=== PATIENT | female | born 1940 | race Caucasian/White ===

== ENCOUNTER 2023-10-16 05:45 | Day surgery (SDC) | payer MEDICARE, BC ==
[2023-10-16] VITALS (8 sets, daily range): BP systolic 122–134; BP diastolic 58–71; PULSE 51–67; RESP 12–18; TEMP 96.4; O2SAT 94–100
[~2023-10-16] VITALS: Ht 152.4 cm; Wt 83.1 kg
[~2023-10-16 05:45] MED LIST: ALEN70TA80 PO; AMLO5TAB16 PO; APIX5TAB3 PO; CABE0.5T2 PO; CALC200T PO; CHOL100062 PO; DOCUMENT DATE & TIME OF BETA-BLOCKER PO ONE; LEVO50TA8 PO; METO25TA6 PO; MULT-620 PO; POTA-205 PO; PRAV40TA3 PO; ceFOXitin 2GM-NS 100mL ADDvant 100 ML IV ONE; famotidine 20mg tablet PO ONE; ringers solution, lacted 1,000 ML IV SCH
[2023-10-16] MEDS ORDERED: BUPIVAcaine/PF 2.5mg/ml (0.25%) 10ml vial ONE (06:56)
[2023-10-16] MEDS ORDERED: HYDROmorphone/PF 0.2 MG/ML SYRINGE IV PRN (07:20)
[2023-10-16] MEDS ORDERED: meperidine/PF 25mg/ml syringe IV PRN (07:20)
[2023-10-16] MEDS ORDERED: proCHLORperazine 10 MG/2 ml inj IV PRN (07:20)
[2023-10-16] MEDS ORDERED: ringers solution, lacted 1,000 ML IV SCH (07:20)
[2023-10-16] MEDS ORDERED: ondansetron/PF 4mg/2ml inj IV PRN (07:20)
[2023-10-16] MEDS ORDERED: labetalol 20mg/4ml (5mg/ml) syringe IV PRN (07:20)
[2023-10-16] MEDS ORDERED: acetaminophen 1,000mg/100ml IV 100 ML IV PRN (07:20)
[2023-10-16] MEDS ORDERED: morphine 2 MG/ML inj. syringe IV PRN (07:20)
[2023-10-16] MEDS ORDERED: hydrALAZINE 20mg/ml inj. IV PRN (07:20)
[2023-10-16 07:25] LABS: APTT 31 SECONDS (22-32); INR 1.1 INR; PROTHROMBIN TIME 11.9 SECONDS (9.0-12.0)
[2023-10-16] MEDS ORDERED: glycopyrrolate 0.2mg/ml inj ONE (08:16)
[2023-10-16] MEDS ORDERED: neostigmine methylsulfate 1 MG/ML 10ml vial ONE (08:16)
[2023-10-16] MEDS ORDERED: sevoflurane 250ml liquid IH ONE (08:16)
[2023-10-16] MEDS ORDERED: clindamycin 600mg/D5W 50ml 50 ML IV ONE (08:20)
[2023-10-16] MEDS ORDERED: fentaNYL/PF 50MCG/1 ML 2ML syringe ONE (08:20)
[2023-10-16] MEDS ORDERED: CLINDAMYCIN 600mg IN NS 50ML 50 ML IV ONE (08:20)
[2023-10-16] MEDS ORDERED: midazolam 1 mg/ML 2ml injection ONE (08:28)
[2023-10-16] MEDS ORDERED: dexamethasone sod phosphate 4mg/ml inj. ONE (08:33)
[2023-10-16] MEDS ORDERED: propofol inj 20 ML IV ONE (08:34)
[2023-10-16] MEDS ORDERED: rocuronium 10mg/ml inj IV ONE (08:34)
[2023-10-16] MEDS ORDERED: LIDOcaine 2% (20mg/ml) 5ml vial ONE (08:34)
[2023-10-16] MEDS ORDERED: ondansetron/PF 4mg/2ml inj ONE (08:34)
[2023-10-16] MEDS ORDERED: BUPIVAcaine/PF 2.5mg/ml (0.25%) 10ml vial IJ ONE (09:05)
--- NOTE | 2023-10-16 09:40 | NUR ---
Received from OR via , accompanied by Anesthesiologist Joseph and report given by Anesthesiolreilly and ZIGGY Abraham. Pt is sleepy but responds to voice. SM 10L o2 saturation 96%. No s/sx of pain or distress. Dressing on left groin, clean, dry, and intact. VSS. Will continue to monitor patient.
--- NOTE | 2023-10-16 11:10 | NUR ---
Pt understand all discharge instructions and given verbal handout. Pt verbalizes understanding. Left groin dressing, CDI. Pt continues to have a dry cough but c/o of this prior to admission. Pt transported via wheelchair to private vehicle without incident. All belongings with patient: purse, wallet, watch, keys, dentures and glasses.
== END 2023-10-16 11:10 | disposition home or self-care (01) ==
LOC: PAS 05:45
PROVIDERS: ATTEND Surgery
DX: R59.0 Localized enlarged lymph nodes (principal); I48.91 Unspecified atrial fibrillation; E11.9 Type 2 diabetes mellitus without complications; I10 Essential (primary) hypertension; Z88.1 Allergy status to other antibiotic agents; Z88.8 Allergy status to other drugs, medicaments and biological substances; Z88.2 Allergy status to sulfonamides; Z91.013 Allergy to seafood; Z91.041 Radiographic dye allergy status; Z79.899 Other long term (current) drug therapy; Z90.49 Acquired absence of other specified parts of digestive tract; Z98.890 Other specified postprocedural states; Z79.01 Long term (current) use of anticoagulants; Z85.72 Personal history of non-Hodgkin lymphomas; Z96.653 Presence of artificial knee joint, bilateral; Z87.891 Personal history of nicotine dependence
CPT/HCPCS: 36415; 38531; 71045; 82948; 85610; 85730; 93005; J1100; J2250; J2405; J2704; J2710; J3010; J3490; J7030; J7120; Z7506; Z7508; Z7512; A4215; A4618; A7000; J0694